=== PATIENT | female | born 1940 | race Caucasian/White ===

== ENCOUNTER 2023-05-27 10:41 | Emergency (ER) | payer MEDICARE, BC, SELFPAY ==
[2023-05-27] VITALS (39 sets, daily range): BP systolic 75–145; BP diastolic 46–91; PULSE 47–155; RESP 10–41; TEMP 36.7; O2SAT 95–99; BMI 27.3
--- NOTE | 2023-05-27 10:53 | DI.RAD.S_ITS ---
PROCEDURE: XR CHEST 1V INDICATIONS: chest pain TECHNIQUE: One view of the chest was acquired. COMPARISON: None. FINDINGS: Surgical changes and devices: None. Lungs and pleura: Lungs are clear. No pleural effusions or pneumothorax. Mediastinum: Mediastinal contours appear normal. Heart size is normal. Bones and chest wall: No suspicious bony lesions. Overlying soft tissues appear unremarkable. IMPRESSION: No acute cardiopulmonary disease. Dictated by: Nataliya Bobo M.D. on 05/27/2023 at 12:47 Approved by: Nataliya Bobo M.D. on 05/27/2023 at 12:48
[2023-05-27 11:18] LABS: Add Manual Diff / Slide Review NO; Basophils Absolute Auto 0 /uL (0-100); Basophils Percent Auto 0.4 % (0-2); Eosinophils Absolute Auto 0 /uL (0-450); Eosinophils Percent Auto 0.5 % (2-4); Hematocrit 42.6 % (36-46); Hemoglobin 14.6 g/dL (12.0-16.0); Lymphocytes Absolute Auto 1000 /uL (1100-4500); Lymphocytes Percent Auto 13.6 % (25-40); Mean Corpuscular HGB Conc 34.2 % (30-36); Mean Corpuscular Volume 90.7 fL (80-100); Monocytes Absolute Auto 600 /uL (0-900); Monocytes Percent Auto 7.9 % (3-14); Neutrophils Absolute Auto 5700 /uL (1500-7000); Neutrophils Percent Auto 77.6 % (50-75); Platelet Count 228 X10^3/uL (150-400); Red Blood Cell Count 4.69 X10^6/uL (4.0-5.2); White Blood Cell Count 7.4 X10^3/uL (4.5-11.0)
[2023-05-27 11:21] LABS: INR 1.5 (0.9-1.3); Prothrombin Time 17.2 SECONDS (10.1-12.7)
[2023-05-27 11:24] LABS: PTT Partial Thromboplastin Tim 39 SECONDS (26-36)
[2023-05-27 11:30] LABS: Alanine Aminotransferase 26 IU/L (<35); Albumin 4.2 g/dL (3.5-5.0); Albumin Globulin Ratio 1.4 (1.0-2.8); Alkaline Phosphatase 90 U/L (38-126); Aspartate Aminotransferase 35 IU/L (14-36); BUN Creatinine Ratio 19.7 (6-22); Bilirubin Total 0.8 mg/dL (0.2-1.3); Blood Urea Nitrogen 15 mg/dL (7-17); Calcium 9.1 mg/dL (8.4-10.2); Carbon Dioxide 24 mmol/L (22-32); Chloride 104 mmol/L (98-107); Creatine Kinase 74 U/L (30-135); Estimated Glomerular Filt Rate > 60 mL/min (>60); Glucose 119 mg/dL (80-110); HEMOLYSIS < 15 (0-50); Lipase 82 U/L (23-300); Magnesium 1.9 mg/dL (1.6-2.3); Potassium 4.3 mmol/L (3.4-5.1); Sodium 135 mmol/L (137-145); Total Protein 7.2 g/dL (6.3-8.2)
[2023-05-27 11:42] LABS: Troponin I < 0.012 ng/mL (0.01-0.034)
--- NOTE | 2023-05-27 12:05 | ED_ITS ---
HPI - Arrhythmia/Palpitations General Chief Complaint: Arrhythmia/Palpitations Stated Complaint: thinks in AFIB Time Seen by Provider: 05/27/23 12:05 Source: patient Mode of arrival: Family Vehicle Limitations: no limitations History of Present Illness HPI narrative: This is in 82-year-old female with complaint of atrial fibrillation. Patient is on sotalol, Eliquis, spironolactone and stops levothyroxine in the past. Patient states she went to bed about 10:00 a.m. last night woke up around midnight with fluttering in her chest which has been persistent. She denies chest pain or pressure no shortness of breath she is had some lightheadedness but no syncope. No nausea or vomiting. She did notice she would quite a bit of diarrhea before this episode started at home. She states no black or bloody stools. No dysuria urgency or frequency. No new swelling in extremities. Patient states she has had atrial fibrillation for several years, she is been on the same dose of sotalol longstanding the Eliquis since she turned age 80. She did note her levothyroxine was stopped in the past. She is on spironolactone bad vitamin-D early other medications. She would 1 SOPHIE and cardioversion before she was on chronic anticoagulation and had 1 additional cardioversion emergency department. No known drug allergies. No tobacco she is 1-2 glasses of alcohol nightly. No illicit. Her card tender is Dr. Marcial Pinto at [facility] in [facility]. Primary care is also in the same area. She lives in [place] in his visiting the area and staying on [facility] currently. Patient's last intake was 1900 last night, no issues with anesthesias or cardioversions in the past, no CPAP or WAQAR known. No dentures or things that are removable from her mouth. Related Data Allergies Allergy/AdvReac Type Severity Reaction Status Date / Time No Known Drug Allergies Allergy Verified 05/27/23 10:53 Review of Systems Review of Systems ROS Unobtainable: All systems reviewed & are unremarkable except as noted in HPI and below Patient History Social History Smoking Status: Former smoker Smoking Status: Former smoker tobacco type: cigarettes alcohol intake frequency: 0-2 drinks per day Substance Use Type: does not use Exam Narrative Exam Narrative: GENERAL: Alert and oriented x three, elderly female in mild distress. HEENT: Head normocephalic, atraumatic, EOMI, pupils reactive, face symmetric, moist mucous membranes NECK: Supple, full range of motion CARDIOVASCULAR: Irregularly regular tachycardic rate and rhythm without murmurs, rubs or gallops. No JVD. No swelling bilateral lower extremities. RESPIRATORY: Breath sounds equal bilaterally, no wheezes rales or rhonchi. No tachypnea accessory muscle use. ABDOMEN: Soft, nontender. Normoactive bowel sounds all 4 quadrants. No guarding or rebound, rigidity, no mass : No CVA tenderness EXTREMITIES: Normal range of motion, no clubbing or edema. Neurovascularly intact NEUROLOGICAL: Cranial nerves II through XII grossly intact. Moving all extremities SKIN: Warm, dry, no petechiae, no rashes or lesions. Initial Vital Signs Initial Vital Signs: Vital Signs Temperature 98.1 F 05/27/23 10:54 Pulse Rate 102 H 05/27/23 10:54 Respiratory Rate 18 05/27/23 10:54 Blood Pressure 135/81 05/27/23 10:54 Pulse Oximetry 99 05/27/23 10:54 Oxygen Delivery Method Room Air 05/27/23 10:54 Procedures Cardioversion Consent Signed: Yes Indication: Atrial fibrillation with rapid ventricular response Stability: Stable Number of attempts (shocks): 1 Joules used: 120 Cardiac rhythm post-cardioversion: sinus bradycardia Procedural Sedation Consent signed: Yes Time out performed: Yes Indication: cardioversion ASA Class: II Mallampati Airway Classification: Class II Time of Last PO Intake: 19:00 (05/26/23) Preparation: monitor technician applied, pulse oximeter, capnometry used, supplemental O2 applied, suction/airway equipment at bedside and IV secured IV Propofol dose (mg): 45 ED Sedation Level: Moderate (Concious) Patient Tolerated Procedure: Well Complications: hypoventilation Interventions: Airway repositioned (jaw thrust.) Course Orders Ordered: ED Orders 05/27/23 10:53 XR chest 1V Stat 05/27/23 11:05 EKG-12 Lead Stat 05/27/23 11:06 Complete Blood Count AUTO DIFF Stat Comprehensive Metabolic Panel Stat Lipase Stat Magnesium Stat PTT Partial Thromboplastin Yannick Stat Prothrombin Time INR Stat TSH w/ Reflex to FT4 Stat Troponin & CK Cardiac Panel Stat 05/27/23 12:20 Urine Microscopic Stat 05/27/23 14:16 EKG-12 Lead Routine Discontinued Medications Aspirin (Aspirin 81 Mg Chew Tab) 324 mg PO NOW ONE Stop: 05/27/23 10:54 Last Admin: 05/27/23 11:34 Dose: Not Given Documented By: FADI Diltiazem HCl (Diltiazem 5 Mg/Ml Sdv) 10 mg IV NOW ONE Stop: 05/27/23 12:26 Last Admin: 05/27/23 12:47 Dose: 10 mg Documented By: FADI Sodium Chloride (Normal Saline 0.9%) 1,000 mls @ 1,000 mls/hr IV BOLUS ONE Stop: 05/27/23 13:24 Last Infusion: 05/27/23 15:28 Dose: 0 mls/hr Documented By: Admin: 05/27/23 12:48 Dose: 1,000 mls/hr Documented By: FADI Propofol (Propofol 200 Mg/20 Ml Vial) 65 mg 1 mg/kg (65 mg) IV NOW ONE Stop: 05/27/23 13:45 Last Admin: 05/27/23 14:01 Dose: 50 mg Documented By: MORENA Vital Signs Vital signs: Vital Signs - 8 hr 05/27/23 12:00 05/27/23 12:00 05/27/23 12:10 Pulse Rate 149 H 154 H Respiratory Rate 29 H 26 H Blood Pressure 124/91 H Pulse Oximetry 96 98 05/27/23 12:10 05/27/23 12:47 05/27/23 12:30 Pulse Rate 155 H Respiratory Rate Blood Pressure 121/82 109/60 109/60 Pulse Oximetry 05/27/23 12:30 05/27/23 13:00 05/27/23 13:00 Pulse Rate 147 H 125 H Respiratory Rate 22 20 Blood Pressure 120/57 L Pulse Oximetry 95 96 05/27/23 13:05 05/27/23 13:10 05/27/23 13:18 Pulse Rate 106 H 120 H 109 H Respiratory Rate 26 H 24 25 H Blood Pressure Pulse Oximetry 96 96 96 05/27/23 13:20 05/27/23 13:20 05/27/23 13:25 Pulse Rate 127 H 140 H Respiratory Rate 26 H 41 H Blood Pressure 145/82 H Pulse Oximetry 97 96 05/27/23 13:30 05/27/23 13:30 05/27/23 13:35 Pulse Rate 139 H 142 H Respiratory Rate 25 H 26 H Blood Pressure 110/77 Pulse Oximetry 97 96 05/27/23 13:40 05/27/23 13:45 05/27/23 13:50 Pulse Rate 136 H 137 H 136 H Respiratory Rate 10 L 20 22 Blood Pressure Pulse Oximetry 96 95 95 05/27/23 14:00 05/27/23 14:01 05/27/23 14:01 Pulse Rate 142 H 133 H Respiratory Rate 22 21 Blood Pressure 143/78 H Pulse Oximetry 98 98 05/27/23 14:05 05/27/23 14:06 05/27/23 14:06 Pulse Rate 51 L 49 L Respiratory Rate 20 20 Blood Pressure 87/50 L Pulse Oximetry 95 95 05/27/23 14:07 05/27/23 14:07 05/27/23 14:10 Pulse Rate 49 L 47 L Respiratory Rate 25 H 20 Blood Pressure 79/51 L Pulse Oximetry 95 95 05/27/23 14:10 05/27/23 14:15 05/27/23 14:21 Pulse Rate 50 L 50 L Respiratory Rate 24 16 Blood Pressure 75/46 L Pulse Oximetry 96 05/27/23 14:15 05/27/23 14:20 05/27/23 14:20 Pulse Rate 51 L Respiratory Rate 35 H Blood Pressure 88/50 L 84/60 L Pulse Oximetry 96 05/27/23 14:25 05/27/23 14:25 05/27/23 14:30 Pulse Rate 49 L Respiratory Rate 24 Blood Pressure 87/60 L 89/61 L Pulse Oximetry 97 05/27/23 14:30 05/27/23 14:35 05/27/23 14:35 Pulse Rate 47 L 50 L Respiratory Rate 19 25 H Blood Pressure 102/59 L Pulse Oximetry 97 98 05/27/23 14:40 05/27/23 14:40 05/27/23 14:45 Pulse Rate 49 L Respiratory Rate 22 Blood Pressure 105/59 L 108/54 L Pulse Oximetry 98 05/27/23 14:45 05/27/23 14:50 05/27/23 14:50 Pulse Rate 50 L 49 L Respiratory Rate 23 25 H Blood Pressure 111/59 L Pulse Oximetry 98 97 05/27/23 14:55 05/27/23 14:55 05/27/23 15:00 Pulse Rate 50 L Respiratory Rate 21 Blood Pressure 104/59 L 106/60 Pulse Oximetry 97 05/27/23 15:00 05/27/23 15:05 05/27/23 15:05 Pulse Rate 51 L 52 L Respiratory Rate 31 H 24 Blood Pressure 123/59 L Pulse Oximetry 97 98 05/27/23 15:10 05/27/23 15:11 05/27/23 15:11 Pulse Rate 53 L 53 L Respiratory Rate 21 34 H Blood Pressure 126/62 Pulse Oximetry 98 98 MDM - Arrhythmia/Palpitations Lab Data 05/27/23 11:06 05/27/23 11:06 Labs: Lab Results 05/27/23 05/27/23 05/27/23 Range/Units 11:06 11:06 11:06 WBC 7.4 (4.5-11.0) X10^3/uL RBC 4.69 (4.0-5.2) X10^6/uL Hgb 14.6 (12.0-16.0) g/dL Hct 42.6 (36-46) % MCV 90.7 (80-100) fL MCH 31.0 (26-34) PG MCHC 34.2 (30-36) % RDW 14.0 (11.6-14.8) % Plt Count 228 (150-400) X10^3/uL Neut % (Auto) 77.6 H (50-75) % Lymph % (Auto) 13.6 L (25-40) % [place] % (Auto) 7.9 (3-14) % Eos % (Auto) 0.5 L (2-4) % Baso % (Auto) 0.4 (0-2) % Neut # (Auto) 5700 (3536-1092) /uL Lymph # (Auto) 1000 L (1594-5185) /uL [place] # (Auto) 600 (0-900) /uL Eos # (Auto) 0 (0-450) /uL Baso # (Auto) 0 (0-100) /uL PT 17.2 H (10.1-12.7) SECONDS INR 1.5 H (0.9-1.3) APTT 39 H (26-36) SECONDS Sodium 135 L (137-145) mmol/L Potassium 4.3 (3.4-5.1) mmol/L Chloride 104 (98-107) mmol/L Carbon Dioxide 24 (22-32) mmol/L BUN 15 (7-17) mg/dL Creatinine 0.76 (0.52-1.04) mg/dL Estimated GFR > 60 (>60) mL/min BUN/Creatinine Ratio 19.7 (6-22) Glucose 119 H (80-110) mg/dL Calcium 9.1 (8.4-10.2) mg/dL Magnesium 1.9 (1.6-2.3) mg/dL Total Bilirubin 0.8 (0.2-1.3) mg/dL AST 35 (14-36) IU/L ALT 26 (<35) IU/L Alkaline Phosphatase 90 (38-126) U/L Total Creatine Kinase 74 (30-135) U/L Troponin I < 0.012 (0.01-0.034) ng/mL Total Protein 7.2 (6.3-8.2) g/dL Albumin 4.2 (3.5-5.0) g/dL Globulin 3.0 (1.7-4.1) g/dL Albumin/Globulin Ratio 1.4 (1.0-2.8) Lipase 82 (23-300) U/L TSH (0.47-4.68) uIU/mL Urine RBC (0-5/HPF) Urine WBC (0-5/HPF) Ur Squamous Epith Cells (0-5/HPF) Urine Bacteria (None) Ur Culture Indicated? 05/27/23 05/27/23 Range/Units 11:06 12:20 WBC (4.5-11.0) X10^3/uL RBC (4.0-5.2) X10^6/uL Hgb (12.0-16.0) g/dL Hct (36-46) % MCV (80-100) fL MCH (26-34) PG MCHC (30-36) % RDW (11.6-14.8) % Plt Count (150-400) X10^3/uL Neut % (Auto) (50-75) % Lymph % (Auto) (25-40) % [place] % (Auto) (3-14) % Eos % (Auto) (2-4) % Baso % (Auto) (0-2) % Neut # (Auto) (9372-7313) /uL Lymph # (Auto) (4913-0927) /uL [place] # (Auto) (0-900) /uL Eos # (Auto) (0-450) /uL Baso # (Auto) (0-100) /uL PT (10.1-12.7) SECONDS INR (0.9-1.3) APTT (26-36) SECONDS Sodium (137-145) mmol/L Potassium (3.4-5.1) mmol/L Chloride (98-107) mmol/L Carbon Dioxide (22-32) mmol/L BUN (7-17) mg/dL Creatinine (0.52-1.04) mg/dL Estimated GFR (>60) mL/min BUN/Creatinine Ratio (6-22) Glucose (80-110) mg/dL Calcium (8.4-10.2) mg/dL Magnesium (1.6-2.3) mg/dL Total Bilirubin (0.2-1.3) mg/dL AST (14-36) IU/L ALT (<35) IU/L Alkaline Phosphatase (38-126) U/L Total Creatine Kinase (30-135) U/L Troponin I (0.01-0.034) ng/mL Total Protein (6.3-8.2) g/dL Albumin (3.5-5.0) g/dL Globulin (1.7-4.1) g/dL Albumin/Globulin Ratio (1.0-2.8) Lipase (23-300) U/L TSH 3.70 (0.47-4.68) uIU/mL Urine RBC 0-1/hpf (0-5/HPF) Urine WBC 1-5/hpf (0-5/HPF) Ur Squamous Epith Cells 1-5 /hpf (0-5/HPF) Urine Bacteria None seen (None) Ur Culture Indicated? Cult not indicated Point of Care Testing Test Results Not applicable Urine Dip Bedside Urine Glucose Negative Bedside Urine Bilirubin - Negative Bedside Urine Ketone - Negative Urine Specific [place] 1.020 Bedside Urine Occult Blood +/- Bedside Urine pH 6.0 Bedside Urine Protein - Negative Bedside Urine Urobilinogen - Negative Bedside Urine Nitrite - Negative Bedside Urine Leukocytes - Negative Esterase Imaging Data Chest x-ray: My Impression: prelim-nap appreciated. ECG Data Attestation: I personally reviewed and interpreted this ECG as follows: Interpretation: AFib with rapid ventricular response rate of 140, QRS of [address] No acute ST elevation or depression. EKG 2. Sinus rhythm rate of 60 2p are 110 QRS is 72 QTC 464. Occasional short WA with premature complex. No dropped beats or lengthening WA interval. T-wave inverted in lead 3 not appreciated other leads. MDM Narrative Medical decision making narrative: This is an 82-year-old female who presents with AFib RVR who has known atrial fibrillation she is chronically anticoagulated patient does note she had some diarrhea last night prior to this episode starting she maybe a little dehydrated. Patient's pressure has been sustaining O2 sat is appropriate. Chest x-ray did not show major changes. Labs show slight left shift, normal hemoglobin and platelets, coags elevated consistent with being on Eliquis, sodium 135 potassium is 4.3 Mag is 1.9, renal function, glucose LFTs and troponin are negative. TSH 3.7 Patient received fluids, diltiazem and had slight improvement in heart rate but is still elevated intermittently. After discussion patient would like to pursue cardioversion. Patient was reviewed risks versus benefits she does appear to be appropriate candidate today. Patient tolerated very, did have a little bit of hypotension heart rates in the 40s to 50s states 50 and normal. Patient continued to improve blood pressure continued to improve prior to discharge home patient was able to ambulate without issue her and feels much better at this time. Discharge Plan Departure Patient Disposition: Home Clinical Impression: Atrial fibrillation with rapid ventricular response Instructions: DI for Atrial Fibrillation Activity Restrictions/Additional Instructions: Follow-up with your cardiology team for recheck, please call for an appointment. Continue your home medications as prescribed. Make sure you are getting plenty of fluids. Please return for new or worsening symptoms, new chest pain, shortness of breath, lightheadedness or passing out, persistent vomiting, new swelling in her extremities or other new or concerning changes. Referrals: Miscellaneous,Doctor, MD [Primary Care Provider] - Stand Alone Forms: Patient Portal/API
[2023-05-27] MEDS: dilTIAZem 5 MG/ML SDV 10 MG IV (12:47)
[2023-05-27 12:48] LABS: Bacteria Urine None Seen; RBC Urine 0-1/HPF (0-5/HPF); Squamous Epithelial Cell Urine 1-5 /HPF (0-5/HPF); WBC Urine 1-5/HPF (0-5/HPF)
[2023-05-27] MEDS: SODIUM CHLORIDE 0.9% 1,000 ML 1000 ML IV (12:48)
[2023-05-27 12:49] LABS: Culture Indicated Urine Cult Not Indicated
--- NOTE | 2023-05-27 13:57 | PC.NURSE ---
pt was able to get up to use [facility] with assistance.
[2023-05-27] MEDS: propofoL 200 MG/20 ML VIAL 65 MG IV (14:01)
== END 2023-05-27 15:29 | disposition home or self-care (01) ==
PROVIDERS: Emergency Provider Emergency Medicine
DX: I48.20 Chronic atrial fibrillation, unspecified (principal); Z79.01 Long term (current) use of anticoagulants; R42 Dizziness and giddiness; I95.9 Hypotension, unspecified
CPT/HCPCS: 36415; 71045; 80053; 81003; 81015; 82550; 83690; 83735; 84443; 84484; 85025; 85610; 85730; 92960; 93005; 96361; 96374; 99285; J2704